=== PATIENT | female | born 1970 | race Caucasian/White ===

== ENCOUNTER → 2016-12-29 | Outpatient (CLI) | payer BC ==
[~2016-12-29] MED LIST: ATV/1 PO; L-ME1CAP PO; LITH1TAB PO; VALIUM PO; VITAMIN B12 PO
[2016-12-29 10:33] LABS: BLOOD UREA NITROGEN 9 mg/dl (7-18); CALCIUM 9.7 mg/dl (8.5-10.1); CARBON DIOXIDE 27 mmol/L (21-32); CHLORIDE 106 mmol/L (98-107); CREATININE 0.67 mg/dl (0.60-1.20); GLUCOSE 92 mg/dl (70-99); POTASSIUM 4.3 mmol/L (3.5-5.1); SODIUM 138 mmol/L (136-145)
== END | disposition home or self-care (01) ==
LOC: C.LAB1850 09:31
PROVIDERS: ATTEND Student in an Organized Health Care Education/Training Program
DX: Z51.81 Encounter for therapeutic drug level monitoring (principal); Z79.899 Other long term (current) drug therapy

== ENCOUNTER → 2017-01-14 | Outpatient (CLI) | payer BC ==
[2017-01-14 15:26] LABS: BASO % 0.3 %; BASO ABS # 0.03 K/uL (0-0.2); EOS % 1.2 %; HEMATOCRIT 38.2 % (37-47); IG% 0.3 %; LYMPH % 20.4 %; LYMPH ABS # 1.92 K/uL (1.2-3.4); MEAN CELL VOLUME 88.6 fL (80-100); MEAN CORPUSCULAR HEMOGLOBIN 30.4 pg (25-34); MEAN PLATELET VOLUME 9.4 fL (7.4-10.4); MONO % 7.2 %; NEUT % 70.6 %; PLATELET COUNT 203 K/uL (130-400); RED BLOOD COUNT 4.31 M/uL (4.2-5.4); WHITE BLOOD COUNT 9.41 K/uL (4.8-10.8)
[2017-01-14 15:47] LABS: ALB/GLOB RATIO 1.1 (0.9-2); ALKALINE PHOSPHATASE 67 U/L (45-117); ALT/SGPT 24 U/L (12-78); AST/SGOT 5 U/L (15-37); BLOOD UREA NITROGEN 12 mg/dl (7-18); BUN/CREATININE RATIO 14.8 (10-20); CALCIUM 9.1 mg/dl (8.5-10.1); CARBON DIOXIDE 28 mmol/L (21-32); CHLORIDE 108 mmol/L (98-107); GLUCOSE 109 mg/dl (70-99); POTASSIUM 4.1 mmol/L (3.5-5.1); SODIUM 140 mmol/L (136-145)
[2017-01-14 15:52] LABS: COMPLETE YES; MEAN CORPUSCULAR HGB CONC 34.3 g/dl (32-36)
--- NOTE | 2017-01-14 17:44 | DIAGNOSTIC IMAGING REPORT ---
ABD/PELVIS ORAL CONT ONLY CLINICAL HISTORY: 46 years-old Female presenting with ABDOMINAL PAIN, LEFT LOWER QUADRANT PAIN. TECHNIQUE: Multidetector CT of the abdomen and pelvis was performed after the administration of oral contrast only. IV contrast: None. A dose lowering technique was used consistent with the principles of ALARA (as low as reasonably achievable). COMPARISON: None. CT DOSE (mGy.cm): The estimated cumulative dose is 550.11 mGy.cm. FINDINGS: Timing Inspector topogram: Unremarkable. Lung bases: Lung bases clear. No pericardial or pleural effusion. Liver: Normal morphology. Normal density. Subcentimeter hypodensity at the right hepatic dome, indeterminate but possibly hepatic cyst or hamartoma. Biliary: No gross biliary ductal dilatation allowing for noncontrast technique. Normal gallbladder. Pancreas: Normal. Spleen: Normal. Adrenal glands: Normal. Kidneys and ureters: No nephrolithiasis. No hydronephrosis. Ureters grossly normal, although evaluation limited by lack of intravenous contrast. Bladder: Incompletely evaluated secondary to underdistention. Pelvic organs: Normal noncontrast appearance of the uterus and ovaries. Bowel: Mild peritoneal thickening and inflammatory change in the left paracolic gutter associated with Limited diverticulosis at the junction of the descending colon and sigmoid colon, suggestive of acute diverticulitis. No evidence of perforation or adjacent fluid collection. No bowel obstruction. Normal appendix. Peritoneal cavity: Trace free fluid in the pelvis. Vasculature: Normal noncontrast appearance. Lymph nodes: No gross lymphadenopathy allowing for noncontrast technique. Abdominal wall: Normal. Musculoskeletal: Normal. IMPRESSION: 1. Evidence of acute uncomplicated diverticulitis at the junction of the sigmoid and descending colon. No evidence of perforation or associated abscess. Electronically signed by: Charlie Kendall M.D. 01/14/2017 5:43 PM Dictated Date/Time: 01/14/2017 5:37 PM
== END | disposition home or self-care (01) ==
LOC: C.CTS 15:04
PROVIDERS: ATTEND Student in an Organized Health Care Education/Training Program
DX: R10.9 Unspecified abdominal pain (principal)

== ENCOUNTER → 2017-05-26 | Outpatient (CLI) | payer BC, OTHER | END | disposition home or self-care (01) | LOC: C.LABSPEC 17:37 | PROVIDERS: ATTEND Podiatrist Foot & Ankle Surgery | DX: L60.0 Ingrowing nail (principal) ==

== ENCOUNTER → 2017-07-14 | Outpatient (CLI) | payer BC | END | disposition home or self-care (01) | LOC: C.PAPS 13:29 | PROVIDERS: ATTEND Obstetrics & Gynecology | DX: Z01.419 Encounter for gynecological examination (general) (routine) without abnormal findings (principal) ==

== ENCOUNTER → 2017-07-19 | Outpatient (CLI) | payer BC ==
--- NOTE | 2017-07-19 15:41 | MAMMOGRAPHY REPORT ---
BILATERAL DIGITAL SCREENING MAMMOGRAM TOMOSYNTHESIS WITH CAD: 07/19/2017 CLINICAL HISTORY: Routine screening. Patient has no complaints. TECHNIQUE: Breast tomosynthesis in addition to standard 2D mammography was performed. Current study was also evaluated with a Computer Aided Detection (CAD) system. COMPARISON: Comparison is made to exams dated: 11/08/2014 mammogram, 11/07/2013 mammogram, and 2 mammogram - [facility]. BREAST COMPOSITION: The tissue of both breasts is heterogeneously dense, which may obscure small mas ses. FINDINGS: The parenchymal pattern is unchanged. No developing mass, architectural distortion or clus ter of suspicious microcalcifications is seen in either breast. IMPRESSION: ACR BI-RADS CATEGORY 2: BENIGN There is no mammographic evidence of malignancy. A 1 year screening mammogram is recommended. The pa tient will receive written notification of the results. Approximately 10% of breast cancers are not detected with mammography. A negative mammographic report should not delay biopsy if a clinically suggestive mass is present. Erin Hernandes M.D. ay/:07/19/2017 15:18:46 Licensed Esthetician: Lisa ACOSTA(Verito)(Ezequiel)([place]), [facility] letter sent: Normal 1/2 BI-RADS Code: ACR BI-RADS Category 2: Benign
== END | disposition home or self-care (01) ==
LOC: C.MAMM 14:36
PROVIDERS: ATTEND Obstetrics & Gynecology
DX: Z12.31 Encounter for screening mammogram for malignant neoplasm of breast (principal)

== ENCOUNTER 2017-09-07 10:55 | Emergency (ER) | payer BC ==
[~2017-09-07] VITALS: Ht 157.5 cm; Wt 88.5 kg
[2017-09-07 10:59] VITALS: O2SAT 96
[2017-09-07 11:04] VITALS: TEMP 36.7; Ht 157.5 cm; Wt 88.5 kg
--- NOTE | 2017-09-07 11:34 | EMERGENCY ROOM VISIT NOTE ---
History First contact with patient: 11:08 Chief Complaint: CHEST PAIN Stated Complaint: CHEST AND BACK PAIN Nursing Triage Summary: patient reports she woke up with chest pain this morning. pain is also in back. "I felt a little goofy for he last couple days" History of Present Illness The patient is a 47 year old female who presents to the Emergency Room with complaints of "I hurt". The patient states a few days ago, she began experiencing intermittent jabs in her left chest. This morning upon awakening, she began experiencing worsening left-sided chest discomfort radiating toward the back. The pain is worse with breathing or changing positions. She states occasionally it is better with sitting straight upright, and occasionally it is better with lying flat. She states there is a location on the left where if she pushes on that side and moves her arm she experiences mild relief. The patient states she has not recently been ill, nor has there been an injury. She has not recently had any coughing or congestion. There is no dyspnea, and she describes the pain as sharp, "like a jab". The pain is all left-sided. She denies any aching or pulsating, but states there is some mild pressure in that discomfort. The pain is nonexertional, and there is no dyspnea, however pain is increased with position changes. The patient rates her pain 7/10, and states on occasion it does become worse. She is not a current smoker, however she does have a family history of CVA and her mother. She does not have any cardiac history or history of hypertension. She denies any abdominal pain, diarrhea, constipation, upper respiratory infection symptoms, headache, dizziness, nausea, or vomiting. She does report a history of costochondritis, and states symptoms were similar, however slightly different. She states she did take 2 Advil and one Ativan at approximately 7 AM. These medications do seem to have helped. She would like an opinion to ensure she is managing this properly if it is costochondritis. Review of Systems A complete 10 point review of systems was reviewed with the patient with pertinent positives and negatives as per history of present illness. All else were negative. Past Medical/Surgical History Anxiety Social History Smoking Status: Never Smoker Smokeless Tobacco Use: No Alcohol Use: occasionally Drug Use: none Marital Status: Occupation Status: employed Current/Historical Medications Scheduled Cyclobenzaprine Hcl (Flexeril), 5-10 MG PO TID Ibuprofen Tab (Advil), 400 MG PO UD Loami Carbonate (Loami Carbonate), 300 MG PO HS Methylprednisolone (Medrol Dosepak), 1 PKT PO UD Scheduled PRN Lorazepam (Ativan), 1 MG PO TID PRN for Anxiety Allergies Lamotrigine Physical Exam Vital Signs Date Time Temp Pulse Resp B/P (MAP) Pulse Ox O2 Delivery O2 Flow Rate FiO2 09/07/17 12:05 64 19 114/74 98 Room Air 09/07/17 11:16 71 09/07/17 11:04 96 Room Air 09/07/17 11:04 36.7 73 16 135/85 96 Room Air 09/07/17 10:59 96 Room Air Physical Exam VITALS: Vitals are noted on the nurse's note and reviewed by myself. Vital signs stable. GENERAL: This is a 47-year-old white female, in no acute distress, nondiaphoretic, well-developed well-nourished. SKIN: The skin was without rashes, erythema, edema, or bruising. There is no tenting of the skin. Capillary reflex less than 2 seconds. HEAD: Normocephalic atraumatic. EARS: External auditory canals clear, tympanic membranes pearly canales without erythema or effusion bilaterally. EYES: Pupils equal round and reactive to light and accommodation. Conjunctivae without injection, sclerae without icterus. Extraocular movements intact. NOSE: Patent, turbinates without inflammation or discharge. No sinus tenderness. MOUTH: Mucous membranes moist. Tonsils are not enlarged. Pharynx without erythema or exudate. Uvula midline. Airway patent. Tongue does not deviate. NECK: Supple without nuchal rigidity. No lymphadenopathy. No thyromegaly. Cervical spine is nontender. No JVD. HEART: Regular rate and rhythm without murmurs gallops or rubs. LUNGS: Clear to auscultation bilaterally without wheezes, rales or rhonchi. No dullness to percussion. No retractions or accessory muscle use. ABDOMEN: Positive bowel sounds x 4. Normal tympanic percussion. Soft, nontender, without masses or organomegaly. Dial sign negative. No guarding or rebound tenderness. MUSCULOSKELETAL: Mild tenderness over the fifth rib anteriorly on the left. The pain the patient is experiencing is not reproducible, though. No muscle atrophy, erythema, or edema noted. Full range of motion without joint tenderness in all extremities. No other tenderness to palpation. Normal gait. Strength 5/5 throughout. NEURO: Patient was alert and oriented to person place and time. Normal sensation to light and sharp touch. Deep tendon reflexes 2+ throughout. No focal neurological deficits. Medical Decision & Procedures ER Provider Diagnostic Interpretation: L RIBS UNILATERAL WITH PA CHEST CLINICAL HISTORY: Left upper posterior rib pain. COMPARISON STUDY: Chest radiograph and chest CT April 06, 2013. FINDINGS: Lung volumes are normal. No pneumothorax or pleural effusion is noted. Cardiac size is normal. Mediastinal contours are normal. There is no evidence for pulmonary edema. No acute left-sided rib fractures are identified. No suspicious osseous lesion within the ribs is identified by radiography. IMPRESSION: No pneumothorax. No acute left rib fractures identified. Electronically signed by: Keyshawn Puente M.D. 09/07/2017 12:59 PM Dictated Date/Time: 09/07/2017 12:56 PM Laboratory Results 09/07/17 11:42 Red Blood Count 4.52, Mean Corpuscular Volume 86.5, Mean Corpuscular Hemoglobin 29.9, Mean Corpuscular Hemoglobin Concent 34.5, Mean Platelet Volume 9.5, Neutrophils (%) (Auto) 64.6, Lymphocytes (%) (Auto) 25.4, Monocytes (%) (Auto) 7.1, Eosinophils (%) (Auto) 2.2, Basophils (%) (Auto) 0.5, Neutrophils # (Auto) 3.81, Lymphocytes # (Auto) 1.50, Monocytes # (Auto) 0.42, Eosinophils # (Auto) 0.13, Basophils # (Auto) 0.03 09/07/17 11:42 Test 09/07/17 11:42 White Blood Count 5.90 K/uL (4.8-10.8) Red Blood Count 4.52 M/uL (4.2-5.4) Hemoglobin 13.5 g/dL (12.0-16.0) Hematocrit 39.1 % (37-47) Mean Corpuscular Volume 86.5 fL (80-100) Mean Corpuscular Hemoglobin 29.9 pg (25-34) Mean Corpuscular Hemoglobin Concent 34.5 g/dl (32-36) Platelet Count 183 K/uL (130-400) Mean Platelet Volume 9.5 fL (7.4-10.4) Neutrophils (%) (Auto) 64.6 % Lymphocytes (%) (Auto) 25.4 % Monocytes (%) (Auto) 7.1 % Eosinophils (%) (Auto) 2.2 % Basophils (%) (Auto) 0.5 % Neutrophils # (Auto) 3.81 K/uL (1.4-6.5) Lymphocytes # (Auto) 1.50 K/uL (1.2-3.4) Monocytes # (Auto) 0.42 K/uL (0.11-0.59) Eosinophils # (Auto) 0.13 K/uL (0-0.5) Basophils # (Auto) 0.03 K/uL (0-0.2) RDW Standard Deviation 40.0 fL (36.4-46.3) RDW Coefficient of Variation 12.6 % (11.5-14.5) Immature Granulocyte % (Auto) 0.2 % Immature Granulocyte # (Auto) 0.01 K/uL (0.00-0.02) Prothrombin Time 10.1 SECONDS (9.0-12.0) Prothromb Time International Ratio 1.0 (0.9-1.1) Activated Partial Thromboplast Time 26.4 SECONDS (21.0-31.0) Partial Thromboplastin Ratio 1.0 Anion Gap 4.0 mmol/L (3-11) Est Creatinine Clear Calc Drug Dose 93.1 ml/min Estimated GFR () 105.7 Estimated GFR (Non- 91.2 BUN/Creatinine Ratio 18.2 (10-20) Calcium Level 8.8 mg/dl (8.5-10.1) Total Bilirubin 0.4 mg/dl (0.2-1) Aspartate Amino Transf (AST/SGOT) 9 U/L (15-37) Alanine Aminotransferase (ALT/SGPT) 22 U/L (12-78) Alkaline Phosphatase 59 U/L (45-117) Troponin I < 0.015 ng/ml (0-0.045) Total Protein 7.0 gm/dl (6.4-8.2) Albumin 3.7 gm/dl (3.4-5.0) Globulin 3.3 gm/dl (2.5-4.0) Albumin/Globulin Ratio 1.1 (0.9-2) ECG Per My Interpretation Indication: chest pain Rate (beats per minute): 62 Rhythm: normal sinus Findings: no acute ischemic change, no ectopy Comparison ECG Date: 04/03/14 Change: Inverted QRS/T waves in leads 1 and aVR, however no significant other change noted. Suspect lead placement issue. ED Course The patient was seen and evaluated as above. EKG performed and reviewed/interpreted by myself as above. The patient did decline any IV access. She was agreeable to straight stick labs. Lab draw completed. X-ray performed. I reviewed all findings and discussed them with the patient at bedside. I discussed the case with Dr. Handley. Discharge instructions reviewed, the patient was discharged home in good condition. Medical Decision This is a 47-year-old female patient presents emergency department today complaining of left-sided chest pain which began spontaneously this morning. The pain was slightly reproducible, but she denies any known cause. The patient 's symptoms did improve with anti-inflammatories and Ativan. There is no history of recent illness, coughing, or injury. Given this history and the patient's age, a basic cardiac workup was initiated. This was negative. Patient's CBC did not reveal any leukocytosis, anemia, thrombocytopenia. Electrolytes, renal, and hepatic function were normal. Troponin was negative. Coagulation studies without abnormalities. The patient's chest x-ray with left rib detail did not reveal any abnormal findings. I suspect a musculoskeletal etiology of the patient's symptoms. I did recommend anti-inflammatory medications and muscle relaxers. The patient does have Ativan at home, but did request a prescription for Flexeril. She will be started on a Medrol Dosepak for inflammation. All questions were answered to the patient's satisfaction. We were in agreement with the plan of care. She was encouraged on close follow- up with her PCP outpatient. Etiologies such as cardiac ischemia, aortic dissection, pulmonary embolism, pneumonia, pneumothorax, musculoskeletal, infections, gastrointestinal, as well as others were entertained. The chart was completed utilizing [employer] Speech voice recognition software. Grammatical errors, random word insertions, pronoun errors, and incomplete sentences are an occasional consequence of this system due to software limitations, ambient noise, and hardware issues. Any formal questions or concerns about the content, text, or information contained within the body of this dictation should be directly addressed to the provider for clarification. Medication Reconcilliation Current Medication List: was personally reviewed by me Blood Pressure Screening Patient's blood pressure: Normal blood pressure Impression Primary Impression: Chest wall pain Departure Information Dispostion Home / Self-Care Condition GOOD Prescriptions Cyclobenzaprine Hcl (FLEXERIL) 5 Mg Tab 5-10 MG PO TID, #15 TAB PRN Prov: Susy Mccann PA-C 09/07/17 Methylprednisolone (MEDROL DOSEPAK) 4 Mg Reji 1 PKT PO UD for 6 Days, #1 PKT Prov: Susy Mccann PA-C 09/07/17 Referrals RV. Gao MD (PCP) Patient Instructions ED Chest Pain Costochondritis, My [facility] Additional Instructions You have been treated in the Emergency Department for left-sided chest pain. Cardiac workup was negative. I suspect a musculoskeletal etiology of your illness. You have been prescribed Flexeril (cyclobenzaprine) 1-2 tabs orally, three times per day. Do NOT exceed 30 mg (6 tabs) per day. Take your first dose at bedtime as it can make you drowsy. Always take all medications as prescribed. You have been prescribed a Medrol Dosepak. This is a steroid which will help decrease your inflammation, redness, and itch. Take the medicine as prescribed. Take the ENTIRE 6 day course of the steroids. No NSAIDs including ibuprofen, Advil, Motrin, Aleve, naproxen while on steroids. For pain control, you can use the following [id number] medicines (if >12 yo): Ibuprofen(Motrin, Advil) may be used for fever or pain. Use 600mg every six hours as needed. Take with food. Avoid using more than 2400mg in a 24 hour period. Do not use 2400mg per day for more than three consecutive days without physician direction. Prolonged inappropriate use can lead to stomach upset or ulcers. No NSAIDs while on steroids. (AND/OR) Acetaminophen(Tylenol) may be used for fever or pain. Use 1000mg every six hours as needed. Avoid using more than 3000mg in a 24 hour period. If this is an acute injury, ice can be applied to the area of pain for the first 3 days to help decrease pain and inflammation. After the first 3 days, a heating pad can be used over the area for continued soothing relief. You should schedule a follow-up appointment in 2-3 days with your Primary Care Provider for further evaluation and treatment of your rib pain. Hugging a pillow while coughing or sneezing can help to reduce your pain. Be sure to continue taking occasional deep breaths to help expand your lungs to reduce the risk of developing pneumonia. Return to the Emergency Department if your current symptoms worsen despite treatment course outlined above, or if you develop any of the following symptoms : intractable pain despite aforementioned treatment course, loss of control of your bowel or bladder, numbness or tingling in your groin, or development of a fever.
[2017-09-07 11:53] LABS: BASO % 0.5 %; BASO ABS # 0.03 K/uL (0-0.2); EOS % 2.2 %; EOS ABS # 0.13 K/uL (0-0.5); HEMATOCRIT 39.1 % (37-47); HEMOGLOBIN 13.5 g/dL (12.0-16.0); IG# 0.01 K/uL (0.00-0.02); LYMPH % 25.4 %; MEAN CELL VOLUME 86.5 fL (80-100); MEAN CORPUSCULAR HEMOGLOBIN 29.9 pg (25-34); MEAN CORPUSCULAR HGB CONC 34.5 g/dl (32-36); MEAN PLATELET VOLUME 9.5 fL (7.4-10.4); MONO % 7.1 %; MONO ABS # 0.42 K/uL (0.11-0.59); NEUT % 64.6 %; NEUT ABS # 3.81 K/uL (1.4-6.5); PLATELET COUNT 183 K/uL (130-400); RED CELL DISTRIBUTION WIDTH CV 12.6 % (11.5-14.5)
[2017-09-07 12:02] LABS: PTT PATIENT 26.4 SECONDS (21.0-31.0)
[2017-09-07 12:11] LABS: ALBUMIN 3.7 gm/dl (3.4-5.0); ALT/SGPT 22 U/L (12-78); AST/SGOT 9 U/L (15-37); BLOOD UREA NITROGEN 14 mg/dl (7-18); CALCIUM 8.8 mg/dl (8.5-10.1); CARBON DIOXIDE 27 mmol/L (21-32); CREATININE 0.78 mg/dl (0.60-1.20); GLUCOSE 101 mg/dl (70-99); POTASSIUM 4.1 mmol/L (3.5-5.1); SODIUM 138 mmol/L (136-145)
[2017-09-07 12:15] LABS: ALKALINE PHOSPHATASE 59 U/L (45-117)
--- NOTE | 2017-09-07 13:01 | DIAGNOSTIC IMAGING REPORT ---
L RIBS UNILATERAL WITH PA CHEST CLINICAL HISTORY: Left upper posterior rib pain. COMPARISON STUDY: Chest radiograph and chest CT April 06, 2013. FINDINGS: Lung volumes are normal. No pneumothorax or pleural effusion is noted. Cardiac size is normal. Mediastinal contours are normal. There is no evidence for pulmonary edema. No acute left-sided rib fractures are identified. No suspicious osseous lesion within the ribs is identified by radiography. IMPRESSION: No pneumothorax. No acute left rib fractures identified. Electronically signed by: Keyshawn Puente M.D. 09/07/2017 12:59 PM Dictated Date/Time: 09/07/2017 12:56 PM
[2017-09-07] MEDS ORDERED: ATV/1 PO (13:10)
[2017-09-07] MEDS ORDERED: LTH300C PO (13:11)
[2017-09-07] MEDS ORDERED: IBUP-103 PO (13:12)
[2017-09-07] MEDS ORDERED: METH4PAK PO (13:33)
[2017-09-07] MEDS ORDERED: CYCL5TAB PO (13:33)
[2017-09-07 13:54] VITALS: BP 129/74; PULSE 76; O2SAT 96
== END 2017-09-07 13:56 | disposition home or self-care (01) ==
LOC: C.EDB 10:56 → C.EDC 13:56
DX: R07.89 Other chest pain (principal); Z79.899 Other long term (current) drug therapy; Z88.8 Allergy status to other drugs, medicaments and biological substances; Z82.49 Family history of ischemic heart disease and other diseases of the circulatory system